=== PATIENT | female | born 1995 | race Caucasian/White ===

== ENCOUNTER 2021-07-28 18:24 | Emergency (ER) | payer OTHER ==
[~2021-07-28] VITALS: Ht 167.6 cm; Wt 65.8 kg
[2021-07-28 18:54] VITALS: BP 119/87
--- NOTE | 2021-07-28 19:03 | NUR ---
ARIADNA. HANDED ON URINE CUP.
--- NOTE | 2021-07-28 19:30 | NUR ---
RECEIVED IN BED 1 WITH C/O LOWER ABD PAIN, NAUSEA X 4 DAYS. 14 WEEKS . PMH: DENIES
--- NOTE | 2021-07-28 20:05 | NUR ---
Patient discharged with v/s stable. Written and verbal after care instructions given and explained. Patient verbalized understanding. Ambulatory with steady gait. All questions addressed prior to discharge. Advised to follow up with PMD.
== END 2021-07-28 20:05 | disposition home or self-care (01) ==
LOC: MED 18:24
DX: O26.891 Other specified pregnancy related conditions, first trimester (principal); O21.8 Other vomiting complicating pregnancy; R10.30 Lower abdominal pain, unspecified; Z3A.14 14 weeks gestation of pregnancy; Z88.1 Allergy status to other antibiotic agents
CPT/HCPCS: 81002; 81025; 99284